=== PATIENT | male | born 1985 | race Caucasian/White ===

== ENCOUNTER 2020-12-18 02:13 | Emergency (ER) | payer SELFPAY ==
[2020-12-18] MEDS ORDERED: CYCLOBENZAPRINE10 M1 PO (03:18)
[2020-12-18 03:28] VITALS: BP 114/98
== END 2020-12-18 03:28 | disposition home or self-care (01) ==
LOC: ED 02:13
DX: S16.1XXA Strain of muscle, fascia and tendon at neck level, initial encounter (principal); E66.01 Morbid (severe) obesity due to excess calories; F17.210 Nicotine dependence, cigarettes, uncomplicated; X58.XXXA Exposure to other specified factors, initial encounter
CPT/HCPCS: J1885